=== PATIENT | female | born 1990 | race African-American/Black ===

== ENCOUNTER 2019-02-06 19:56 | Emergency (ER) | payer MEDICAID ==
[~2019-02-06] VITALS: Ht 172.7 cm; Wt 64.9 kg
[2019-02-06 19:59] VITALS: BP 116/78
--- NOTE | 2019-02-06 20:21 | NUR ---
Patient discharged to home in stable condition. Written and verbal after care instructions given. Patient verbalizes understanding of instruction. Pt ambulatory with a steady gait
== END 2019-02-06 20:23 | disposition home or self-care (01) ==
LOC: ER 19:59
DX: M54.5 Low back pain (principal); G89.29 Other chronic pain

== ENCOUNTER 2019-03-12 18:13 | Emergency (ER) | payer MEDICAID ==
[~2019-03-12] VITALS: Ht 170.2 cm; Wt 62.1 kg
[2019-03-12 18:32] VITALS: BP 131/70
[2019-03-12 18:52] LABS: BILIRUBIN,URINE Negative (NEGATIVE); BLOOD, URINE Negative Ery/uL (NEGATIVE); COLOR,URINE Yellow (YELLOW); KETONES,URINE Trace (NEGATIVE); LEUKOCYTE ESTERASE ,URINE Negative (NEGATIVE); NITRITE, URINE Negative (NEGATIVE); PROTEIN,URINE Negative (NEGATIVE); UGLUCOSE Negative (NEGATIVE); UROBILINOGEN,URINE 0.2 EU/dL (0.2)
[2019-03-12 18:57] LABS: APPEARANCE,URINE SLIGHTLY HAZY (CLEAR); BACTERIA,URINE Rare /HPF (None Seen); RBC,URINE 0-2 /HPF (0-2); SQUAMOUS EPITHELIAL CELL,UR Moderate /HPF (None Seen); WBC,URINE 0-2 /HPF (0-3)
== END 2019-03-12 19:39 | disposition home or self-care (01) ==
LOC: ER 18:16
DX: M54.5 Low back pain (principal); G89.29 Other chronic pain
CPT/HCPCS: 81000-TC; 84703-TC; 87491; 87591

== ENCOUNTER 2019-04-13 17:50 | Emergency (ER) | payer MEDICAID ==
[~2019-04-13] VITALS: Ht 170.2 cm; Wt 67.6 kg
[2019-04-13 17:57] VITALS: BP 123/78
[2019-04-13] MEDS ORDERED: DEXAMETHASONE SOD PHOSPHATE 10 MG/ML VIAL ONE (18:19)
[2019-04-13] MEDS ORDERED: DEXAMETHASONE SOD PHOSPHATE 4 MG/ML VIAL IM ONE (18:30)
== END 2019-04-13 18:31 | disposition home or self-care (01) ==
LOC: ER 17:50
DX: G89.29 Other chronic pain (principal); M54.5 Low back pain
CPT/HCPCS: 96372; 99283; J1100

== ENCOUNTER 2019-04-20 03:36 | Emergency (ER) | payer MEDICAID ==
[~2019-04-20] VITALS: Ht 170.2 cm; Wt 63.0 kg
[2019-04-20 04:13] VITALS: BP 124/70
== END 2019-04-20 04:25 | disposition home or self-care (01) ==
LOC: ER 03:36
DX: G89.29 Other chronic pain (principal); M54.5 Low back pain

== ENCOUNTER 2019-05-08 23:21 | Emergency (ER) | payer MEDICAID ==
--- NOTE | 2019-05-08 23:49 | NUR ---
CALLED FOR TRIAGE, NO ANSWER
--- NOTE | 2019-05-08 23:55 | NUR ---
CALLED FOR TRIAGE, NO ANSWER
--- NOTE | 2019-05-09 | NUR ---
CALLED FOR TRIAGE, NO ANSWER
== END 2019-05-09 00:06 | disposition home or self-care (01) ==
LOC: ER 23:21
DX: Z53.21 Procedure and treatment not carried out due to patient leaving prior to being seen by health care provider (principal)